=== PATIENT | male | born 1955 | race Caucasian/White ===

== ENCOUNTER 2016-07-15 22:18 | Inpatient (IN) | payer BC, OTHER ==
[~2016-07-15] VITALS: Ht 175.3 cm; Wt 96.1 kg
[2016-07-15 23:56] VITALS: BP 161/103; PULSE 135; RESP 20; TEMP 97.4; O2SAT 92
[2016-07-16] VITALS (20 sets, daily range): BP systolic 111–127; BP diastolic 56–77; PULSE 76–102; RESP 16–22; TEMP 97.9–98.4; O2SAT 66–99
[2016-07-16] MEDS ORDERED: MORPHINE SULFATE 8 MG/ML INJ ONE (00:12)
[2016-07-16] MEDS ORDERED: RESP: ALBUTEROL 2.5 MG/3 ML NEB (PRN) NEB (00:15)
[2016-07-16] MEDS ORDERED: MORPHINE SULFATE 4 MG/ML INJ IV PUSH ONE (00:15)
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
[2016-07-16] MEDS: methylPREDNISolone SOD SUCC 125 MG/2 ML VIAL IV PUSH SCH ×4 (01:13→17:50)
[2016-07-16] MEDS: BENZONATATE 100 MG CAP PO PRN ×2 (01:16→12:03)
[2016-07-16 01:19] LABS: AUTOMATED NEUTROPHIL # 6.1 TH/MM3 (1.8-7.7); BASOPHIL % 0.5 % (0.0-2.0); EOSINOPHIL # 0.1 TH/MM3 (0-0.4); EOSINOPHIL % 1.5 % (0.0-4.0); HEMATOCRIT 30.5 % (39.0-51.0); HEMO FLAGS DIFF FINAL; LYMPH % 18.4 % (9.0-44.0); LYMPHOCYTE # 1.6 TH/MM3 (1.0-4.8); MEAN CELL VOLUME 97.6 FL (80.0-100.0); MEAN CORPUSCULAR HGB CONC 34.8 % (32.0-36.0); MONO % 10.1 % (0.0-8.0); NEUT % 69.5 % (16.0-70.0); PLATELET COUNT 214 TH/MM3 (150-450); RED BLOOD COUNT 3.12 MIL/MM3 (4.50-5.90); RED CELL DISTRIBUTION WIDTH 14.4 % (11.6-17.2); WHITE BLOOD COUNT 8.8 TH/MM3 (4.0-11.0)
[2016-07-16 01:30] LABS: APTT (PATIENT) 26.6 SEC (24.3-30.1); INTERNATIONAL NORMALIZED RATIO 1.1 RATIO
[2016-07-16 01:50] LABS: BICARBONATE 28.4 MEQ/L (21.0-32.0); POTASSIUM 4.4 MEQ/L (3.5-5.1)
[2016-07-16] MEDS ORDERED: CHLORHEXIDINE GLUCONATE 2 % 1 PACK (2 CLOTHS) TOP PRN (03:00)
[2016-07-16] MEDS ORDERED: ONDANSETRON HCL 4 MG/2 ML VIAL IV PRN (03:00)
[2016-07-16] MEDS ORDERED: MISCELLANEOUS NURSING INFORMATION XX SCH (03:00)
[2016-07-16] MEDS: MORPHINE SULFATE 4 MG/ML INJ IV PUSH PRN ×9 (03:53→21:33)
[2016-07-16] MEDS: LEVOFLOXACIN 750 MG PREMIX INJ 150 ML IV SCH (03:53)
[2016-07-16] MEDS: CHLORHEXIDINE GLUCONATE 2 % 1 PACK (2 CLOTHS) TOP SCH (04:00)
[2016-07-16] MEDS: RESP: LIDOCAINE HCL 4% PF 5 ML NEB NEB SCH ×2 (04:04→07:54)
[2016-07-16] MEDS: RESP: ALBUTEROL 2.5 MG/IPRATROPIUM 0.5 MG NEB (SCH) NEB ×2 (07:54→11:19)
[2016-07-16] MEDS: FINASTERIDE 5 MG TAB PO SCH (08:18)
[2016-07-16] MEDS: ACETAMINOPHEN/HYDROcodone 325 MG/10 MG TAB PO PRN ×2 (08:18→14:45)
[2016-07-16] MEDS: PREGABALIN 25 MG CAP PO SCH ×2 (08:19→21:32)
[2016-07-16] MEDS: PANTOPRAZOLE SODIUM 40 MG VIAL IV SCH (08:19)
[2016-07-16] MEDS: DOCUSATE SODIUM 100 MG CAP PO SCH ×2 (08:19→21:32)
[2016-07-16] MEDS: LEVOTHYROXINE SODIUM 100 MCG TAB PO SCH (10:25)
[2016-07-16] MEDS: SODIUM CHLOR 0.9% 1000 ML INJ 1,000 ML IV SCH (14:49)
[2016-07-16] MEDS: LORazepam 2 MG/ML VIAL IV PUSH PRN (15:45)
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
[2016-07-16] MEDS: BUDESONIDE-FORMOTEROL 80/4.5 MCG INHALER INH SCH (21:32)
[2016-07-16] MEDS: CEFUROXIME AXETIL 500 MG TAB PO SCH (21:32)
[2016-07-17] VITALS (13 sets, daily range): BP systolic 96–127; BP diastolic 60–84; PULSE 74–117; RESP 12–28; TEMP 97.9–98.7; O2SAT 91–98
[2016-07-17] MEDS: methylPREDNISolone SOD SUCC 125 MG/2 ML VIAL IV PUSH SCH ×5 (01:33→23:37)
[2016-07-17] MEDS: LEVOFLOXACIN 750 MG PREMIX INJ 150 ML IV SCH (02:00)
[2016-07-17] MEDS: CHLORHEXIDINE GLUCONATE 2 % 1 PACK (2 CLOTHS) TOP SCH (04:00)
[2016-07-17 05:52] LABS: AUTOMATED NEUTROPHIL # 11.9 TH/MM3 (1.8-7.7); BASOPHIL % 0.2 % (0.0-2.0); HEMATOCRIT 25.3 % (39.0-51.0); HEMO FLAGS DIFF FINAL; LYMPH % 4.7 % (9.0-44.0); LYMPHOCYTE # 0.6 TH/MM3 (1.0-4.8); MEAN CELL VOLUME 98.5 FL (80.0-100.0); MEAN CORPUSCULAR HEMOGLOBIN 33.4 PG (27.0-34.0); MEAN CORPUSCULAR HGB CONC 33.9 % (32.0-36.0); MONO % 3.4 % (0.0-8.0); NEUT % 91.7 % (16.0-70.0); PLATELET COUNT 184 TH/MM3 (150-450); RED BLOOD COUNT 2.57 MIL/MM3 (4.50-5.90); RED CELL DISTRIBUTION WIDTH 14.6 % (11.6-17.2); WHITE BLOOD COUNT 12.9 TH/MM3 (4.0-11.0)
[2016-07-17] MEDS: MORPHINE SULFATE 4 MG/ML INJ IV PUSH PRN ×9 (05:58→23:38)
[2016-07-17] MEDS: LEVOTHYROXINE SODIUM 100 MCG TAB PO SCH (05:59)
[2016-07-17 06:01] LABS: MAGNESIUM 1.7 MG/DL (1.5-2.5); POTASSIUM 4.6 MEQ/L (3.5-5.1)
[2016-07-17] MEDS: PANTOPRAZOLE SODIUM 40 MG VIAL IV SCH (08:47)
[2016-07-17] MEDS: PREGABALIN 25 MG CAP PO SCH ×2 (08:55→19:54)
[2016-07-17] MEDS: CEFUROXIME AXETIL 500 MG TAB PO SCH ×2 (08:55→19:53)
[2016-07-17] MEDS: FINASTERIDE 5 MG TAB PO SCH (08:56)
[2016-07-17] MEDS: DOCUSATE SODIUM 100 MG CAP PO SCH ×2 (08:56→19:55)
[2016-07-17] MEDS: BUDESONIDE-FORMOTEROL 80/4.5 MCG INHALER INH SCH ×2 (08:57→21:00)
[2016-07-17] MEDS ORDERED: PNEUMOCOCCAL POLYVALENT INJ 25 MCG/0.5 ML SYR IM ONE (10:00)
[2016-07-17] MEDS: BENZONATATE 100 MG CAP PO PRN ×2 (11:05→19:52)
--- NOTE | 2016-07-17 13:22 | PD.TRANSFR ---
Transfer Summary Admission Date Jul 15, 2016 at 23:40 Transfer Date: Jul 17, 2016 Admitting Diagnosis Diagnoses: Objective Vital Signs Date Time Temp Pulse Resp B/P Pulse Ox O2 Delivery O2 Flow Rate FiO2 07/17/16 11:10 22 07/17/16 06:00 99 07/17/16 04:00 98.4 96/61 94 07/16/16 20:05 Nasal Cannula 4.00 Intake and Output 07/16/16 07/16/16 07/17/16 08:00 16:00 00:00 Intake Total 300 ml 905 ml 941 ml Output Total 400 ml 300 ml 400 ml Balance -100 ml 605 ml 541 ml Result Diagram: 07/17/16 0430 07/17/16 0430 Objective Remarks Temp 97.4 pulse 136 162/103 sat 97% on 2 L nasal GENERAL: Well-nourished, well-developed pleasant male who is sitting up in bed with nearly continuous coughing, intermittent hemoptysis of bright red blood. SKIN: Warm and dry, well perfused HEAD: Atraumatic. Normocephalic. EYES: Pupils equal and round. No scleral icterus. No injection or drainage. ENT: No nasal bleeding noted. No intraoral lesions noted. NECK: Trachea midline. No JVD. CARDIOVASCULAR: Regular rate and rhythm. No murmurs rubs or gallops appreciated. RESPIRATORY: Minimal cough. There is no accessory muscle use. Slight expiratory wheeze noted GASTROINTESTINAL: Abdomen soft, non-tender, nondistended. Bowel sounds present. MUSCULOSKELETAL: Extremities without clubbing, cyanosis, or edema. No obvious deformities. NEUROLOGICAL: Awake and alert. No obvious cranial nerve deficits. Motor grossly within normal limits. Normal speech. Oriented 4 Urinary Catheter: No Vascular Central Line Catheter: No A/P Problem List: (1) Major hemoptysis ICD Code: R04.2 Status: Acute (2) Adenocarcinoma of left lung ICD Code: C34.92 Status: Acute (3) BPH (benign prostatic hyperplasia) ICD Code: N40.0 Status: Chronic (4) Hypothyroid ICD Code: E03.9 Status: Chronic (5) Chronic bronchitis ICD Code: J42 Status: Chronic (6) Emphysema lung ICD Code: J43.9 Status: Chronic (7) Peripheral neuropathy ICD Code: G62.9 Status: Chronic (8) Anxiety ICD Code: F41.9 Status: Chronic (9) Anemia ICD Code: D64.9 Status: Acute (10) COPD (chronic obstructive pulmonary disease) ICD Code: J44.9 Status: Chronic (11) GERD (gastroesophageal reflux disease) ICD Code: K21.9 Status: Chronic (12) Tobacco abuse ICD Code: Z72.0 Status: Chronic (13) AAA (abdominal aortic aneurysm) without rupture ICD Code: I71.4 Status: Chronic Assessment and Plan NEURO: Peripheral neuropathy Chronic pain Anxiety Continue Lyrica 50 mg by mouth twice a day Continue Morphine 4 mg IV every 2 hours when necessary pain/cough Xanax 1 mg by mouth 3 times a day when necessary anxiety on hold Ativan 0.5 mill grams IV every 6 hours when necessary anxiety RESP: COPD Emphysema Chronic bronchitis Adenocarcinoma of lung, left upper lobe status post chemotherapy and radiation Vocal cord polyp Tobacco abuse Acute submassive hemoptysis Morphine 2-4 mg IV every 2 hours as needed for cough. Tessalon Perles 200 mg by mouth 3 times a day. Minimal cough Lidocaine nebs 4% every 6 hours. DuoNeb every 4 hours as needed. Albuterol every 2 hours as needed. Solu- Medrol 60 g IV every 6 hours Patient is expectorating and protecting his airway and would be in his best interest to avoid intubation at this time. Discussed with patient, will intubate if needed. CT pulmonary angiogram at outside hospital was negative for PE. There is DEISY lung nodule. DEISY bronchus is partially obstructed ?blood products vs endobronchial lesion. Patient had prior CT guided biopsy, he believes he may have had bronchoscopy in past but is uncertain. Pulmonology consult-Dr Fontaine and planned bronchoscopic evaluation for Hold ASA. Tobacco cessation discussed. CV: History of abdominal aortic aneurysm without rupture Monitor hemodynamics GI: GERD Protonix twice a day NPO after 12MN for bronch in am FEN/RENAL/UROLOGY: BPH Monitor intake and output. Monitor electrolytes. Replace electrolytes as indicated per ICU electrolyte replacement protocol Continue finasteride 5 mg po daily ID: Levaquin 750 mg IV every 24 hours given hemoptysis/bronchitis. 07/16- blood cultures-NGTD HEME: Adenocarcinoma lung s/p radiation and chemotherapy (completed May 2016) Monitor CBC-stable. Resolution of hemoptysis, minimal cough has f/u PET scan in August of 2016 in [place]. He states he then plans to move to [place] for ongoing care (his children live in [facility]). ENDO: Hypothyroidism Home Synthroid dose is 100 g by mouth daily continued. TSH 5.920 elevated, discussed medication compliance and taking medication on an empty stomach . PROPH: SCDs for DVT prophylaxis. Avoid pharmacologic DVT prophylaxis due to active hemoptysis. Protonix 40 milligrams IV daily for stress ulcer prophylaxis and history of GERD ACCESS: Port in left chest. Peripheral IV Patient and CILNICAL SCIENTIST updated at bedside regarding plan of care. Level 3. [facility] 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 Physician Rachael Howe MD Jul 17, 2016 13:22
[2016-07-17] MEDS: SODIUM CHLOR 0.9% 1000 ML INJ 1,000 ML IV SCH (16:07)
[2016-07-17] MEDS ORDERED: DEXT 5%-NACL 0.45% 1000 ML INJ 1,000 ML IV SCH (16:34)
--- NOTE | 2016-07-17 16:34 | HHI.PR ---
Subjective Remarks ALERT NO SOB HEMOPTYSIS PERSISTS Objective Vital Signs Date Time Temp Pulse Resp B/P Pulse Ox O2 Delivery O2 Flow Rate FiO2 07/17/16 13:05 22 07/17/16 09:55 22 07/17/16 06:00 99 07/17/16 04:00 74 07/17/16 04:00 98.4 74 12 96/61 94 07/17/16 02:00 98 07/17/16 00:00 87 07/17/16 00:00 98.1 87 18 111/67 96 07/16/16 23:00 92 07/16/16 22:00 84 07/16/16 20:05 95 Nasal Cannula 4.00 07/16/16 20:00 89 07/16/16 20:00 98.4 81 18 127/77 96 07/16/16 20:00 98.4 81 18 127/77 66 07/16/16 18:00 94 I/O 07/16/16 07/16/16 07/16/16 07/17/16 07/17/16 07/17/16 07:00 15:00 23:00 07:00 15:00 23:00 Intake Total 300 ml 905 ml 941 ml 818 ml 1645 ml Output Total 400 ml 300 ml 400 ml 900 ml 700 ml Balance -100 ml 605 ml 541 ml -82 ml 945 ml Intake Oral 50 ml 250 ml 250 ml 1000 ml IV Total 300 ml 855 ml 691 ml 568 ml 645 ml Output Urine Total 400 ml 300 ml 400 ml 900 ml 700 ml # Voids 1 Result Diagram: 07/17/16 0430 07/17/16 0430 Objective Remarks GENERAL: SKIN: Warm and dry. HEAD: Atraumatic. Normocephalic. EYES: Pupils equal and round. No scleral icterus. No injection or drainage. ENT: No nasal bleeding or discharge. Mucous membranes pink and moist. NECK: Trachea midline. No JVD. CARDIOVASCULAR: Regular rate and rhythm. RESPIRATORY: No accessory muscle use. Clear to auscultation. Breath sounds equal bilaterally. GASTROINTESTINAL: Abdomen soft, non-tender, nondistended. Hepatic and splenic margins not palpable. MUSCULOSKELETAL: Extremities without clubbing, cyanosis, or edema. No obvious deformities. NEUROLOGICAL: Awake and alert. No obvious cranial nerve deficits. Motor grossly within normal limits. Five out of 5 muscle strength in the arms and legs. Normal speech. PSYCHIATRIC: Appropriate mood and affect; insight and judgment normal. Assessment and Plan Assessment and Plan HEMOPTYSIS LUNG CA PLAN BRONCHOSCOPY AM CONTINUE ANTIBIOTICS Zhen Fontaine MD Jul 17, 2016 16:34
[2016-07-18] VITALS (13 sets, daily range): BP systolic 94–130; BP diastolic 61–80; PULSE 88–103; RESP 17–29; TEMP 97.9–98.3; O2SAT 96–99
[2016-07-18] MEDS: MORPHINE SULFATE 4 MG/ML INJ IV PUSH PRN ×8 (01:29→22:19)
[2016-07-18] MEDS: LEVOFLOXACIN 750 MG PREMIX INJ 150 ML IV SCH (01:30)
[2016-07-18] MEDS: SODIUM CHLOR 0.9% 1000 ML INJ 1,000 ML IV SCH ×2 (01:31→14:29)
[2016-07-18] MEDS: BENZONATATE 100 MG CAP PO PRN ×3 (03:46→22:14)
[2016-07-18] MEDS: CHLORHEXIDINE GLUCONATE 2 % 1 PACK (2 CLOTHS) TOP SCH (04:00)
[2016-07-18 04:51] LABS: HEMATOCRIT 22.4 % (39.0-51.0); MEAN CELL VOLUME 98.4 FL (80.0-100.0); MEAN CORPUSCULAR HEMOGLOBIN 33.3 PG (27.0-34.0); MEAN CORPUSCULAR HGB CONC 33.8 % (32.0-36.0); PLATELET COUNT 187 TH/MM3 (150-450); RED BLOOD COUNT 2.28 MIL/MM3 (4.50-5.90); RED CELL DISTRIBUTION WIDTH 14.4 % (11.6-17.2); REVIEW FLAG FINAL; WHITE BLOOD COUNT 16.5 TH/MM3 (4.0-11.0)
[2016-07-18] MEDS: LEVOTHYROXINE SODIUM 100 MCG TAB PO SCH (05:47)
[2016-07-18] MEDS: methylPREDNISolone SOD SUCC 125 MG/2 ML VIAL IV PUSH SCH ×4 (05:48→23:56)
[2016-07-18] MEDS ORDERED: EPINEPHrine HCL (1:1000) 1 MG/ML VIAL ONE (08:31)
[2016-07-18] MEDS ORDERED: LIDOCAINE HCL 2% 50 ML VIAL ONE (08:31)
[2016-07-18] MEDS: PREGABALIN 25 MG CAP PO SCH ×2 (09:00→20:48)
[2016-07-18] MEDS: CEFUROXIME AXETIL 500 MG TAB PO SCH ×2 (09:00→20:48)
[2016-07-18] MEDS: PANTOPRAZOLE SODIUM 40 MG VIAL IV SCH (09:00)
[2016-07-18] MEDS: FINASTERIDE 5 MG TAB PO SCH (09:00)
[2016-07-18] MEDS: DOCUSATE SODIUM 100 MG CAP PO SCH ×2 (09:00→20:48)
[2016-07-18] MEDS: BUDESONIDE-FORMOTEROL 80/4.5 MCG INHALER INH SCH ×2 (09:00→20:48)
[2016-07-18] MEDS ORDERED: DO NOT ADM ANY ANTICOAGULANT DRUGS PRN (09:07)
--- NOTE | 2016-07-18 09:30 | MR ---
cc: ZHEN FONTAINE M.D. DATE 07/18/2016 PROCEDURE Fiberoptic bronchoscopy flexible REASON FOR BRONCHOSCOPY Hemoptysis PROCEDURE Fiberoptic bronchoscopy performed via LMA. Vocal cords visualized appeared intact. Trachea mildly hyperemic. Jamilah sharp. Right mainstem bronchus, right upper, middle and lower lobe inspected with some heme staining, no obstruction or mass lesion. Left mainstem bronchus patent. The right upper and lower lobes with blood clots noted. Irregularity of the mucosa especially in the right upper lung is noted. No mass lesion per se identified and no attempt to remove blood clots completely in view of the patient's persistent hemoptysis. Washings were obtained from the left main stem bronchus for routine TB, fungal cultures, cytological exam. Procedure well tolerated. The patient transferred to recovery in stable condition. IMPRESSION 1. Hemoptysis likely related to left lung cancer, previously diagnosed earlier this year. 2. Samples obtained as above. 3. The procedure well tolerated. 4. The patient transferred recovery in stable condition. Thank you. Zhen Fontaine MD WWW/LAINEY /8:50 AM /9:15 AM
[2016-07-18] MEDS ORDERED: PROPOFOL 200 MG/20 ML AMP IV ONE (12:00)
[2016-07-18] MEDS: ACETAMINOPHEN/HYDROcodone 325 MG/10 MG TAB PO PRN (12:11)
[2016-07-18] MEDS: LORazepam 2 MG/ML VIAL IV PUSH PRN (12:42)
[2016-07-18 14:27] LABS: HEMATOCRIT 21.3 % (39.0-51.0); REVIEW FLAG FINAL
--- NOTE | 2016-07-18 15:01 | HHI.PR ---
Subjective Remarks The patient wanted to know how much longer he would be in the hospital. He still had a lot of coughing episodes and was coughing up blood. Family at bedside. The patient says he has a lot of chronic pain. He says he will need to transition his cancer care over to [place] from [place]. Discussed with nursing. Objective Vitals Vital Signs Date Time Temp Pulse Resp B/P Pulse Ox O2 Delivery O2 Flow Rate FiO2 07/18/16 13:11 20 07/18/16 12:16 20 07/18/16 10:00 100 07/18/16 09:30 98.4 88 16 128/78 97 Nasal Cannula 2 07/18/16 09:15 88 14 136/83 95 Nasal Cannula 2 07/18/16 09:00 97.3 119 15 129/74 95 Simple Mask 6 07/18/16 08:00 89 07/18/16 08:00 97.9 89 20 120/76 99 07/18/16 06:00 93 07/18/16 04:00 103 07/18/16 04:00 98.3 103 29 112/80 96 07/18/16 02:00 99 07/18/16 00:00 98.3 100 17 115/67 96 07/18/16 00:00 100 07/17/16 22:00 92 07/17/16 21:08 42 07/17/16 20:00 98.5 95 20 127/84 97 07/17/16 20:00 95 07/17/16 19:51 98 Nasal Cannula 07/17/16 18:00 86 07/17/16 16:00 106 07/17/16 16:00 97.9 106 28 121/63 94 I/O 07/17/16 07/17/16 07/17/16 07/18/16 07/18/16 07/18/16 07:00 15:00 23:00 07:00 15:00 23:00 Intake Total 818 ml 1645 ml 1125 ml 888 ml 300 ml Output Total 900 ml 700 ml 1425 ml 1475 ml Balance -82 ml 945 ml -300 ml -587 ml 300 ml Intake Oral 250 ml 1000 ml 480 ml 240 ml IV Total 568 ml 645 ml 645 ml 648 ml Other 300 ml Output Urine Total 900 ml 700 ml 725 ml 1400 ml Drainage Total 700 ml 75 ml Result Diagram: 07/18/16 1405 07/17/16 0430 Objective Remarks GENERAL: Well-nourished, well-developed and in no acute distress. SKIN: Warm and dry, well perfused HEAD: Atraumatic. Normocephalic. EYES: Pupils equal and round. No scleral icterus. No injection or drainage. ENT: No nasal bleeding noted. No intraoral lesions noted. NECK: Trachea midline. No JVD. CARDIOVASCULAR: Regular rate and rhythm. No murmurs rubs or gallops appreciated. RESPIRATORY: Slight expiratory wheeze noted. GASTROINTESTINAL: Abdomen soft, non-tender, nondistended. Bowel sounds present. MUSCULOSKELETAL: Extremities without clubbing, cyanosis, or edema. No obvious deformities. NEUROLOGICAL: Awake and alert. No obvious cranial nerve deficits. Motor grossly within normal limits. Normal speech. Oriented 4. PSYCH: Mood and affect appropriate. Procedures Bronchoscopy 07/18. Medications and IVs Current Medications Medications (Trade) Dose Ordered Sig/Neli Route Start Time Stop Time Status Last Admin (Tessalon) 200 mg TID PRN PO 07/16/16 00:15 07/18/16 12:41 Methylprednisolone Sodium Succinate 60 mg 60 mg Q6H IV PUSH 07/16/16 00:00 07/18/16 12:11 (Levaquin 750 Mg Premix Inj) 150 ml @ 100 mls/hr Q24H IV 07/16/16 02:00 07/18/16 01:30 (Lyrica) 50 mg Q12HR PO 07/16/16 09:00 07/17/16 19:54 (Ativan Inj) 0.5 mg Q6H PRN IV PUSH 07/16/16 02:45 07/18/16 12:42 Morphine Sulfate 4 mg 4 mg Q2H PRN IV PUSH 07/16/16 02:45 07/18/16 12:11 (NS 1000 ml Inj) 1,000 ml @ 84 mls/hr [id number] IV 07/16/16 02:54 07/18/16 14:29 (Protonix Inj) 40 mg DAILY IV 07/16/16 09:00 07/17/16 08:47 (Zofran Inj) 4 mg Q6H PRN IV 07/16/16 03:00 (Colace) 100 mg BID PO 07/16/16 09:00 07/17/16 08:56 Miscellaneous Information 1 [id number] XX 07/16/16 03:00 (Chlorhexidine 2% Cloth) 3 pack Taper DAILY@04 TOP 07/16/16 04:00 07/12/17 03:59 07/18/16 04:00 (Chlorhexidine 2% Cloth) 3 pack UNSCH PRN TOP 07/16/16 03:00 ([place] 10-325 Mg) 1 tab Q6H PRN PO 07/16/16 03:00 07/18/16 12:11 (Proscar) 5 mg DAILY PO 07/16/16 09:00 07/17/16 08:56 (Synthroid) 100 mcg DAILY@0600 PO 07/16/16 10:00 07/18/16 05:47 (Symbicort 80-4.5 Mcg Inh) 2 puff Q12HR INH 07/16/16 21:00 07/17/16 08:57 Cefuroxime Axetil 500 mg 500 mg Q12HR PO 07/16/16 21:00 07/17/16 19:53 (D5W-1/2 NS 1000 ml Inj) 1,000 ml @ 0 mls/hr Q0M IV 07/17/16 16:34 07/18/16 05:52 Miscellaneous Information ALL NURSING DEPARTME... UNSCH PRN .XX 07/18/16 09:07 07/19/16 09:06 A/P Assessment and Plan Adenocarcinoma of left upper lobe/ Hemoptysis/ COPD/ Acute respiratory failure Status post chemotherapy and radiation (completed May 2016). CT pulmonary angiogram at outside hospital was negative for PE; There is DEISY lung nodule; DEISY bronchus is partially obstructed ?blood products vs endobronchial lesion. S/ p bronchoscopy 07/18 by pulmonology. - Morphine 2-4 mg IV every 2 hours as needed for cough. - Tessalon Perles 200 mg by mouth 3 times a day. - Lidocaine nebs 4% every 6 hours. - Solu-Medrol 60 g IV every 6 hours - suction as needed. - follow cultures. - oxygen as needed. - serial H/H. Transfuse as needed. - Hold ASA. - Tobacco cessation discussed. - oncology consult pending. - continue Levaquin. - if unable to protect airway or hemoptysis gets worse will require intubation. Anemia Acute blood loss anemia secondary to above. Hemoglobin 7 07/18. - transfuse 1 unit and follow CBC. Hypothyroidism TSH 5.92. - discussed medication compliance and taking medication on an empty stomach. - Home Synthroid dose is 100 g by mouth daily continued. PPx: SCDs. Discharge Planning Awaiting clinical improvement. Francisco Benavides DO Jul 18, 2016 15:01
[2016-07-18] MEDS: AMINOCAPROIC ACID 500 MG TAB PO SCH ×2 (18:00→23:56)
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
--- NOTE | 2016-07-18 20:43 | HHI.PR ---
Subjective Remarks ALERT NO SOB HEMOPTYSIS PERSISTS bronchoscopy done well tolerated Objective Vital Signs Date Time Temp Pulse Resp B/P Pulse Ox O2 Delivery O2 Flow Rate FiO2 07/18/16 18:24 18 07/18/16 18:00 100 07/18/16 16:00 89 07/18/16 16:00 97.9 97 22 130/71 97 07/18/16 14:00 100 07/18/16 13:11 20 07/18/16 12:00 89 07/18/16 12:00 98.3 98 29 94/61 96 07/18/16 10:00 100 07/18/16 09:30 98.4 88 16 128/78 97 Nasal Cannula 2 07/18/16 09:15 88 14 136/83 95 Nasal Cannula 2 07/18/16 09:00 97.3 119 15 129/74 95 Simple Mask 6 07/18/16 08:00 89 07/18/16 08:00 97.9 89 20 120/76 99 07/18/16 06:00 93 07/18/16 04:00 103 07/18/16 04:00 98.3 103 29 112/80 96 07/18/16 02:00 99 07/18/16 00:00 98.3 100 17 115/67 96 07/18/16 00:00 100 07/17/16 22:00 92 07/17/16 21:08 42 I/O 07/17/16 07/17/16 07/17/16 07/18/16 07/18/16 07/18/16 07:00 15:00 23:00 07:00 15:00 23:00 Intake Total 818 ml 1645 ml 1125 ml 888 ml 1180 ml Output Total 900 ml 700 ml 1425 ml 1475 ml 1100 ml Balance -82 ml 945 ml -300 ml -587 ml 80 ml Intake Oral 250 ml 1000 ml 480 ml 240 ml 480 ml IV Total 568 ml 645 ml 645 ml 648 ml 400 ml Other 300 ml Output Urine Total 900 ml 700 ml 725 ml 1400 ml 1000 ml Drainage Total 700 ml 75 ml 100 ml Result Diagram: 07/18/16 1405 07/17/16 5880 Objective Remarks GENERAL: SKIN: Warm and dry. HEAD: Atraumatic. Normocephalic. EYES: Pupils equal and round. No scleral icterus. No injection or drainage. ENT: No nasal bleeding or discharge. Mucous membranes pink and moist. NECK: Trachea midline. No JVD. CARDIOVASCULAR: Regular rate and rhythm. RESPIRATORY: No accessory muscle use. Clear to auscultation. Breath sounds equal bilaterally. GASTROINTESTINAL: Abdomen soft, non-tender, nondistended. Hepatic and splenic margins not palpable. MUSCULOSKELETAL: Extremities without clubbing, cyanosis, or edema. No obvious deformities. NEUROLOGICAL: Awake and alert. No obvious cranial nerve deficits. Motor grossly within normal limits. Five out of 5 muscle strength in the arms and legs. Normal speech. PSYCHIATRIC: Appropriate mood and affect; insight and judgment normal. Assessment and Plan Assessment and Plan HEMOPTYSIS LUNG CA irregularity DEISY bronchus heam throughout tracheobronchial tree PLAN CONTINUE ANTIBIOTICS MONITOR CLOSELY Zhen Fontaine MD Jul 18, 2016 20:42
[2016-07-19] VITALS (11 sets, daily range): BP systolic 106–152; BP diastolic 47–89; PULSE 71–99; RESP 11–35; TEMP 98–98.3; O2SAT 95–100
[2016-07-19] MEDS: SODIUM CHLOR 0.9% 1000 ML INJ 1,000 ML IV SCH ×2 (02:24→14:19)
[2016-07-19] MEDS: LEVOFLOXACIN 750 MG PREMIX INJ 150 ML IV SCH (03:47)
[2016-07-19 03:55] LABS: REVIEW FLAG FINAL
[2016-07-19] MEDS: CHLORHEXIDINE GLUCONATE 2 % 1 PACK (2 CLOTHS) TOP SCH (03:55)
[2016-07-19] MEDS: MORPHINE SULFATE 4 MG/ML INJ IV PUSH PRN ×4 (03:55→23:13)
[2016-07-19 03:57] LABS: HEMATOCRIT 20.9 % (39.0-51.0)
[2016-07-19 04:40] LABS: HEMATOCRIT 21.8 % (39.0-51.0); REVIEW FLAG FINAL
[2016-07-19] MEDS: AMINOCAPROIC ACID 500 MG TAB PO SCH ×4 (06:24→23:13)
[2016-07-19] MEDS: methylPREDNISolone SOD SUCC 125 MG/2 ML VIAL IV PUSH SCH ×4 (06:24→23:13)
[2016-07-19] MEDS: LEVOTHYROXINE SODIUM 100 MCG TAB PO SCH (06:24)
[2016-07-19] MEDS: BUDESONIDE-FORMOTEROL 80/4.5 MCG INHALER INH SCH ×2 (09:00→20:50)
[2016-07-19] MEDS: ACETAMINOPHEN/HYDROcodone 325 MG/10 MG TAB PO PRN (09:58)
[2016-07-19] MEDS: PANTOPRAZOLE SODIUM 40 MG VIAL IV SCH (09:58)
[2016-07-19] MEDS: PREGABALIN 25 MG CAP PO SCH ×2 (09:58→20:51)
[2016-07-19] MEDS: FINASTERIDE 5 MG TAB PO SCH (09:58)
[2016-07-19] MEDS: DOCUSATE SODIUM 100 MG CAP PO SCH ×2 (09:58→20:51)
[2016-07-19] MEDS: CEFUROXIME AXETIL 500 MG TAB PO SCH ×2 (09:58→20:50)
[2016-07-19] MEDS ORDERED: MIDAZOLAM HCL 5 MG/5 ML VIAL ONE (11:57)
[2016-07-19] MEDS ORDERED: fentaNYL CITRATE 250 MCG/5 ML AMP ONE (11:58)
[2016-07-19] MEDS ORDERED: ceFAZolin 2 GM PREMIX 50 ML ONE (12:02)
--- NOTE | 2016-07-19 13:45 | HHI.PR ---
Subjective Remarks ALERT NO SOB HEMOPTYSIS STOPPED post AMICAR bronchoscopy done well tolerated Objective Vital Signs Date Time Temp Pulse Resp B/P Pulse Ox O2 Delivery O2 Flow Rate FiO2 07/19/16 12:25 20 07/19/16 11:00 20 07/19/16 06:00 71 07/19/16 04:00 71 07/19/16 04:00 98.2 71 11 131/71 100 07/19/16 04:00 9 07/19/16 02:00 71 07/19/16 00:00 84 07/19/16 00:00 98.0 84 12 106/47 98 07/18/16 22:00 89 07/18/16 20:44 96 Nasal Cannula 3.00 07/18/16 20:00 98.2 88 17 116/71 98 07/18/16 20:00 95 07/18/16 18:00 100 07/18/16 16:00 89 07/18/16 16:00 97.9 97 22 130/71 97 07/18/16 14:00 100 I/O 07/18/16 07/18/16 07/18/16 07/19/16 07/19/16 07/19/16 07:00 15:00 23:00 07:00 15:00 23:00 Intake Total 888 ml 1180 ml 916 ml 1216 ml Output Total 1475 ml 1100 ml 500 ml 650 ml Balance -587 ml 80 ml 416 ml 566 ml Intake Oral 240 ml 480 ml 480 ml 620 ml IV Total 648 ml 400 ml 121 ml 596 ml Packed Cells 315 ml Other 300 ml Output Urine Total 1400 ml 1000 ml 300 ml 650 ml Drainage Total 75 ml 100 ml 200 ml 0 ml Result Diagram: 07/19/16 0400 07/17/16 0430 Objective Remarks GENERAL: SKIN: Warm and dry. HEAD: Atraumatic. Normocephalic. EYES: Pupils equal and round. No scleral icterus. No injection or drainage. ENT: No nasal bleeding or discharge. Mucous membranes pink and moist. NECK: Trachea midline. No JVD. CARDIOVASCULAR: Regular rate and rhythm. RESPIRATORY: No accessory muscle use. Clear to auscultation. Breath sounds equal bilaterally. GASTROINTESTINAL: Abdomen soft, non-tender, nondistended. Hepatic and splenic margins not palpable. MUSCULOSKELETAL: Extremities without clubbing, cyanosis, or edema. No obvious deformities. NEUROLOGICAL: Awake and alert. No obvious cranial nerve deficits. Motor grossly within normal limits. Five out of 5 muscle strength in the arms and legs. Normal speech. PSYCHIATRIC: Appropriate mood and affect; insight and judgment normal. Assessment and Plan Assessment and Plan HEMOPTYSIS LUNG CA irregularity DEISY bronchus heam throughout tracheobronchial tree PLAN CONTINUE ANTIBIOTICS MONITOR CLOSELY F/U CT PENDING Zhen Fontaine MD Jul 19, 2016 13:45
--- NOTE | 2016-07-19 13:59 | PD.ONC.PN ---
Subjective Subjective Remarks Patient off floor undergoing embolization. Objective Data Date Time Temp Pulse Resp B/P Pulse Ox O2 Delivery O2 Flow Rate FiO2 07/19/16 12:25 20 07/19/16 11:00 20 07/19/16 06:00 71 07/19/16 04:00 71 07/19/16 04:00 98.2 71 11 131/71 100 07/19/16 04:00 9 07/19/16 02:00 71 07/19/16 00:00 84 07/19/16 00:00 98.0 84 12 106/47 98 07/18/16 22:00 89 07/18/16 20:44 96 Nasal Cannula 3.00 07/18/16 20:00 98.2 88 17 116/71 98 07/18/16 20:00 95 07/18/16 18:00 100 07/18/16 16:00 89 07/18/16 16:00 97.9 97 22 130/71 97 07/18/16 14:00 100 07/19/16 07/19/16 07/19/16 07:00 15:00 23:00 Intake Total 1216 ml Output Total 650 ml Balance 566 ml Result Diagram: 07/19/16 0400 07/17/16 0430 Laboratory Results Laboratory Tests Test 07/18/16 07/18/16 07/18/16 07/18/16 14:05 15:06 15:46 23:50 Hemoglobin 7.0 GM/DL 7.1 GM/DL Hematocrit 21.3 % 20.9 % Crossmatch Leukocyte-Reduced Red Blood Cells Blood Bank Comment Blood Type A POSITIVE Carcinoembryonic Antigen 4.0 NG/ML Test 07/19/16 04:00 Hemoglobin 7.4 GM/DL Hematocrit 21.8 % Culture Results Microbiology Date/Time Procedure Status Source Growth 07/18/16 08:36 Gram Stain - Final Resulted Bronchial Washings Other 07/18/16 08:36 Bronchial Culture - Preliminary Resulted Bronchial Washings Other LIGHT GROWTH NORMAL RESPIRATORY DELISA... 07/18/16 08:36 Acid Fast Stain - Final Resulted Bronchial Washings Other NO ACID FAST BACILLI SEEN 07/18/16 08:36 Mycobacterial Culture Resulted Bronchial Washings Other Pending 07/18/16 08:36 Fungal Smear - Final Resulted Bronchial Washings Other NO FUNGAL ELEMENTS SEEN. 07/18/16 08:36 Fungal Culture Resulted Bronchial Washings Other Pending Administered Medications Medications (Trade) Dose Ordered Sig/Neli Route PRN Reason Start Time Stop Time Status Last Admin Dose Admin Benzonatate (Tessalon) 200 mg TID PRN PO COUGH 07/16/16 00:15 07/18/16 22:14 Methylprednisolone Sodium Succinate 60 mg 60 mg Q6H IV PUSH 07/16/16 00:00 07/19/16 06:24 Levofloxacin/ Dextrose (Levaquin 750 Mg Premix Inj) 150 ml @ 100 mls/hr Q24H IV 07/16/16 02:00 07/19/16 03:47 Pregabalin (Lyrica) 50 mg Q12HR PO 07/16/16 09:00 07/19/16 09:58 Lorazepam (Ativan Inj) 0.5 mg Q6H PRN IV PUSH ANXIETY 07/16/16 02:45 07/18/16 12:42 Morphine Sulfate 4 mg 4 mg Q2H PRN IV PUSH COUGH OR breakthrough PAIN 07/16/16 02:45 07/19/16 03:55 Sodium Chloride (NS 1000 ml Inj) 1,000 ml @ 84 mls/hr [id number] IV 07/16/16 02:54 07/19/16 02:24 Pantoprazole Sodium (Protonix Inj) 40 mg DAILY IV 07/16/16 09:00 07/19/16 09:58 Docusate Sodium (Colace) 100 mg BID PO 07/16/16 09:00 07/19/16 09:58 Chlorhexidine Gluconate (Chlorhexidine 2% Cloth) 3 pack Taper DAILY@04 TOP 07/16/16 04:00 07/12/17 03:59 07/19/16 03:55 Acetaminophen/ Hydrocodone Bitart ([place] 10-325 Mg) 1 tab Q6H PRN PO PAIN 07/16/16 03:00 07/19/16 09:58 Finasteride (Proscar) 5 mg DAILY PO 07/16/16 09:00 07/19/16 09:58 Levothyroxine Sodium (Synthroid) 100 mcg DAILY@0600 PO 07/16/16 10:00 07/19/16 06:24 Budesonide/ Formoterol Fumarate (Symbicort 80-4.5 Mcg Inh) 2 puff Q12HR INH 07/16/16 21:00 07/17/16 08:57 Cefuroxime Axetil 500 mg 500 mg Q12HR PO 07/16/16 21:00 07/19/16 09:58 Dextrose/Sodium Chloride (D5W-1/2 NS 1000 ml Inj) 1,000 ml @ 0 mls/hr Q0M IV 07/17/16 16:34 07/18/16 05:52 Aminocaproic Acid (Amicar) 1,000 mg Q6HR PO 07/18/16 18:00 07/19/16 06:24 Objective Remarks GENERAL: Well-nourished, well-developed patient. SKIN: Warm and dry. HEAD: Normocephalic. EYES: No scleral icterus. No injection or drainage. NECK: Supple, trachea midline. No JVD or lymphadenopathy. LYMPHATIC: No adenopathy. CARDIOVASCULAR: Regular rate and rhythm without murmurs. RESPIRATORY: Breath sounds equal bilaterally. No accessory muscle use. GASTROINTESTINAL: Abdomen soft, non-tender, nondistended. EXTREMITIES: No cyanosis, or edema. MUSCULOSKELETAL: Adequate muscle tone. NEUROLOGICAL: No obvious focal deficit. Awake, alert, and oriented x3. PSYCHIATRIC: Appropriate mood and affect; insight and judgment normal. Assessment/Plan Problem List: (1) Adenocarcinoma of left lung Status: Acute Plan: --on Amicar 1000 milligrams p.o. q. 6 hours. --undergoing embolization in IR --bronchoscopy by Dr. Fontaine 07/18 -->blood on both sides, more so on the left than on the right. The left bronchus was irregular. The note refers to irregularity of the mucosa in the right upper lung but on speaking with Dr. Fontaine, I believe that this was actually present in the left lung. --His oncologist indicated that he probably did not have a complete response to the chemo and radiation. The oncologist is planning on doing a PET scan in the next month or two. --On conferring with his medical oncologist, there is no room for additional radiation therapy. History: --stage IIIB non-small cell lung cancer. --treated with radiation therapy and concomitant carboplatin and Alimta receiving three cycles of carboplatin and Alimta. --last chemotherapy May 08. --last radiation May. Assessment 61y/o male with [id number] lung cancer admitted with severe hemoptysis having recently completed chemotherapy and radiation. h/o Benign prostatic hypertrophy. Hypothyroidism. Chyna Patel Jul 19, 2016 13:59 Chyna Patel Jul 19, 2016 13:59
--- NOTE | 2016-07-19 14:14 | HHI.PR ---
Subjective Remarks The patient was seen in specials getting the embolization done. Discussed with nursing. The patient has been coughing but has not been coughing up any more blood. He does seem to get anxious and sometimes has a hard time following commands. Objective Vitals Vital Signs Date Time Temp Pulse Resp B/P Pulse Ox O2 Delivery O2 Flow Rate FiO2 07/19/16 12:25 20 07/19/16 11:00 20 07/19/16 06:00 71 07/19/16 04:00 71 07/19/16 04:00 98.2 71 11 131/71 100 07/19/16 04:00 9 07/19/16 02:00 71 07/19/16 00:00 84 07/19/16 00:00 98.0 84 12 106/47 98 07/18/16 22:00 89 07/18/16 20:44 96 Nasal Cannula 3.00 07/18/16 20:00 98.2 88 17 116/71 98 07/18/16 20:00 95 07/18/16 18:00 100 07/18/16 16:00 89 07/18/16 16:00 97.9 97 22 130/71 97 I/O 07/18/16 07/18/16 07/18/16 07/19/16 07/19/16 07/19/16 07:00 15:00 23:00 07:00 15:00 23:00 Intake Total 888 ml 1180 ml 916 ml 1216 ml Output Total 1475 ml 1100 ml 500 ml 650 ml Balance -587 ml 80 ml 416 ml 566 ml Intake Oral 240 ml 480 ml 480 ml 620 ml IV Total 648 ml 400 ml 121 ml 596 ml Packed Cells 315 ml Other 300 ml Output Urine Total 1400 ml 1000 ml 300 ml 650 ml Drainage Total 75 ml 100 ml 200 ml 0 ml Result Diagram: 07/19/16 0400 07/17/16 0430 Objective Remarks GENERAL: Sedated on IR table. SKIN: Warm and dry, well perfused HEAD: Atraumatic. Normocephalic. EYES: Pupils equal and round. No scleral icterus. No injection or drainage. ENT: No nasal bleeding noted. No intraoral lesions noted. NECK: Trachea midline. No JVD. CARDIOVASCULAR: Regular rate and rhythm. No murmurs rubs or gallops appreciated. RESPIRATORY: Slight expiratory wheeze noted. GASTROINTESTINAL: Abdomen soft, non-tender, nondistended. Bowel sounds present. MUSCULOSKELETAL: Extremities without clubbing, cyanosis, or edema. No obvious deformities. NEUROLOGICAL: No obvious cranial nerve deficits. Motor grossly within normal limits. Normal speech. Oriented 4. PSYCH: Unable to assess at this time. Procedures Bronchoscopy 07/18. Embolization 07/19. Medications and IVs Current Medications Medications (Trade) Dose Ordered Sig/Neli Route Start Time Stop Time Status Last Admin (Tessalon) 200 mg TID PRN PO 07/16/16 00:15 07/18/16 22:14 Methylprednisolone Sodium Succinate 60 mg 60 mg Q6H IV PUSH 07/16/16 00:00 07/19/16 06:24 (Levaquin 750 Mg Premix Inj) 150 ml @ 100 mls/hr Q24H IV 07/16/16 02:00 07/19/16 03:47 (Lyrica) 50 mg Q12HR PO 07/16/16 09:00 07/19/16 09:58 (Ativan Inj) 0.5 mg Q6H PRN IV PUSH 07/16/16 02:45 07/18/16 12:42 Morphine Sulfate 4 mg 4 mg Q2H PRN IV PUSH 07/16/16 02:45 07/19/16 03:55 (NS 1000 ml Inj) 1,000 ml @ 84 mls/hr [id number] IV 07/16/16 02:54 07/19/16 02:24 (Protonix Inj) 40 mg DAILY IV 07/16/16 09:00 07/19/16 09:58 (Zofran Inj) 4 mg Q6H PRN IV 07/16/16 03:00 (Colace) 100 mg BID PO 07/16/16 09:00 07/19/16 09:58 Miscellaneous Information 1 [id number] XX 07/16/16 03:00 (Chlorhexidine 2% Cloth) 3 pack Taper DAILY@04 TOP 07/16/16 04:00 07/12/17 03:59 07/19/16 03:55 (Chlorhexidine 2% Cloth) 3 pack UNSCH PRN TOP 07/16/16 03:00 ([place] 10-325 Mg) 1 tab Q6H PRN PO 07/16/16 03:00 07/19/16 09:58 (Proscar) 5 mg DAILY PO 07/16/16 09:00 07/19/16 09:58 (Synthroid) 100 mcg DAILY@0600 PO 07/16/16 10:00 07/19/16 06:24 (Symbicort 80-4.5 Mcg Inh) 2 puff Q12HR INH 07/16/16 21:00 07/17/16 08:57 Cefuroxime Axetil 500 mg 500 mg Q12HR PO 07/16/16 21:00 07/19/16 09:58 (D5W-1/2 NS 1000 ml Inj) 1,000 ml @ 0 mls/hr Q0M IV 07/17/16 16:34 07/18/16 05:52 (Amicar) 1,000 mg Q6HR PO 07/18/16 18:00 07/19/16 06:24 A/P Assessment and Plan Adenocarcinoma of left upper lobe/ Hemoptysis/ COPD/ Acute respiratory failure Status post chemotherapy and radiation (completed May 2016). CT pulmonary angiogram at outside hospital was negative for PE; There is DEISY lung nodule; DEISY bronchus is partially obstructed ?blood products vs endobronchial lesion. S/ p bronchoscopy 07/18 by pulmonology. Bleeding improved following Amicar. Oncology consult appreciated. - Morphine 2-4 mg IV every 2 hours as needed for cough. - Tessalon Perles 200 mg by mouth 3 times a day. - Lidocaine nebs 4% every 6 hours. - Solu-Medrol 60 g IV every 6 hours. - suction as needed. - follow cultures. - oxygen as needed. - serial H/H. Transfuse as needed. S/p 1 unit 07/19. - Hold ASA. - Tobacco cessation discussed. - IR consulted for embolization. - continue Levaquin and Amicar. - if unable to protect airway or hemoptysis gets worse will require intubation. Anemia Acute blood loss anemia secondary to above. Hemoglobin 7 07/18. - follow CBC and transfuse as needed. Hypothyroidism TSH 5.92. - discussed medication compliance and taking medication on an empty stomach. - Home Synthroid dose is 100 g by mouth daily continued. PPx: SCDs. Discharge Planning Awaiting clinical improvement. Francisco Benavides DO Jul 19, 2016 14:14
[2016-07-19] MEDS ORDERED: IODIXANOL 320 MG/ML 50 ML VIAL (for RAD SPEC) I-ARTERIAL ONE (14:46)
--- NOTE | 2016-07-19 14:59 | PD.RAD ---
Post Procedure Progress Note Pre Procedure Diagnosis: (1) Adenocarcinoma of left lung Post Procedure Diagnosis: (1) Adenocarcinoma of left lung Procedure Date: Jul 19, 2016 Supervising Radiologist: Joselito Ramos Proceduralist/Assist: Miguel Chung, RT(R), Aby Helton RT(R)() Anesthesia: Local, Conscious Sedation Plan of Activity Patient to Unit: ROPU Patient Condition: Fair See PACS Report for procedural detail/treatment Vascular-Arterial Procedure Procedure 1 Procedure Site: Thoracic Procedure(s): Embolization Access Access Site(s): Right Femoral Artery Closure Site(s): Right vascular closure device Treament Area: left bronchial artery embolization Joselito Ramos MD Jul 19, 2016 14:59
[2016-07-19] MEDS ORDERED: SODIUM CHLOR 0.9% 1000 ML INJ 1,000 ML IV SCH (16:00)
[2016-07-19 17:06] LABS: HEMATOCRIT 21.8 % (39.0-51.0); REVIEW FLAG FINAL
--- NOTE | 2016-07-19 17:41 | RADRPT ---
EXAM DATE/TIME: 07/19/2016 11:11 [facility] COMPARISON: No previous studies available for comparison. INDICATIONS : Hemoptysis. RADIATION DOSE: 5.98 CTDIvol (mGy) MEDICAL HISTORY : Carcinoma, lung. Hypertension. Chronic obstructive pulmonary disease. SURGICAL HISTORY : None. ENCOUNTER: Initial ACUITY: 1 day PAIN SCALE: 0/10 LOCATION: Bilateral chest TECHNIQUE: Volumetric scanning of the chest was performed. Using automated exposure control and adjustment of t he mA and/or kV according to patient size, radiation dose was kept as low as reasonably achievable to obtain optimal diagnostic quality images. FINDINGS: LUNGS: There is a slightly greater than 1 cm nodular density in the lateral left upper lobe. There is minima l perihilar reticular scarring on the left. Slight thickening along the upper medial aspect of the le ft major fissure. No evidence of consolidative infiltrate. No suspicious findings in the right lung. Baseline mild bullous emphysema. PLEURAE: There is no pleural thickening or pleural effusion. MEDIASTINUM: The heart and great vessels demonstrate no acute abnormality. There is no mediastinal or hilar lymph adenopathy. AXILLAE: Within normal limits. No lymphadenopathy. MUSCULOSKELETAL: Within normal limits for patient age. MISCELLANEOUS: The visualized upper abdominal organs demonstrate no acute abnormality. CONCLUSION: 1 cm nodular density in the left upper lobe laterally and slight reticular interstitial thickening in the left perihilar parenchyma. Joselito Ramos MD on July 19, 2016 at 16:57 Board Certified Radiologist. This report was verified electronically.
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
[2016-07-20] VITALS (11 sets, daily range): BP systolic 96–158; BP diastolic 55–90; PULSE 68–72; RESP 13–16; TEMP 97.7–98.3; O2SAT 97–100
[2016-07-20 00:48] LABS: HEMATOCRIT 21.2 % (39.0-51.0); REVIEW FLAG FINAL
[2016-07-20] MEDS: SODIUM CHLOR 0.9% 1000 ML INJ 1,000 ML IV SCH ×2 (02:14→14:09)
[2016-07-20] MEDS: LEVOFLOXACIN 750 MG PREMIX INJ 150 ML IV SCH (02:35)
[2016-07-20] MEDS: CHLORHEXIDINE GLUCONATE 2 % 1 PACK (2 CLOTHS) TOP SCH (04:00)
[2016-07-20] MEDS: AMINOCAPROIC ACID 500 MG TAB PO SCH ×3 (04:59→18:00)
[2016-07-20] MEDS: LEVOTHYROXINE SODIUM 100 MCG TAB PO SCH (04:59)
[2016-07-20] MEDS: BENZONATATE 100 MG CAP PO PRN ×3 (04:59→23:56)
[2016-07-20] MEDS: methylPREDNISolone SOD SUCC 125 MG/2 ML VIAL IV PUSH SCH ×4 (04:59→23:35)
[2016-07-20] MEDS: MORPHINE SULFATE 4 MG/ML INJ IV PUSH PRN ×5 (05:00→23:36)
[2016-07-20 06:01] LABS: HEMATOCRIT 21.3 % (39.0-51.0); MEAN CELL VOLUME 96.8 FL (80.0-100.0); MEAN CORPUSCULAR HEMOGLOBIN 32.7 PG (27.0-34.0); MEAN CORPUSCULAR HGB CONC 33.8 % (32.0-36.0); PLATELET COUNT 167 TH/MM3 (150-450); RED CELL DISTRIBUTION WIDTH 17.6 % (11.6-17.2); REVIEW FLAG FINAL; WHITE BLOOD COUNT 10.4 TH/MM3 (4.0-11.0)
[2016-07-20 06:29] LABS: BICARBONATE 25.2 MEQ/L (21.0-32.0); MAGNESIUM 2.2 MG/DL (1.5-2.5); POTASSIUM 4.2 MEQ/L (3.5-5.1)
[2016-07-20] MEDS: BUDESONIDE-FORMOTEROL 80/4.5 MCG INHALER INH SCH ×2 (09:00→20:30)
[2016-07-20] MEDS: PREGABALIN 25 MG CAP PO SCH ×2 (09:18→20:30)
[2016-07-20] MEDS: DOCUSATE SODIUM 100 MG CAP PO SCH ×2 (09:18→20:30)
[2016-07-20] MEDS: PANTOPRAZOLE SODIUM 40 MG VIAL IV SCH (09:18)
[2016-07-20] MEDS: CEFUROXIME AXETIL 500 MG TAB PO SCH ×2 (09:18→20:30)
[2016-07-20] MEDS: FINASTERIDE 5 MG TAB PO SCH (09:18)
--- NOTE | 2016-07-20 11:24 | PD.ONC.PN ---
Subjective Subjective Remarks Afebrile overnight. Patient s/p embolization in IR yesterday and has had no bleeding since that time. He is resting comfortably and feels much improved. He wants to get out of the unit. Objective Data Date Time Temp Pulse Resp B/P Pulse Ox O2 Delivery O2 Flow Rate FiO2 07/20/16 10:00 72 07/20/16 09:36 97 07/20/16 08:00 98.0 70 14 128/90 98 07/20/16 08:00 70 07/20/16 06:00 68 07/20/16 04:00 68 07/20/16 04:00 97.9 68 13 108/60 100 07/20/16 02:00 72 07/20/16 00:00 98.3 70 14 96/55 97 07/20/16 00:00 70 07/19/16 22:00 79 07/19/16 20:00 99 07/19/16 20:00 98.3 99 35 152/89 95 07/19/16 18:12 18 07/19/16 18:00 71 07/19/16 16:00 71 07/19/16 15:00 98.0 79 20 115/55 98 07/19/16 14:00 71 07/19/16 12:25 20 07/20/16 07/20/16 07/20/16 07:00 15:00 23:00 Intake Total 557 ml Output Total 750 ml Balance -193 ml Result Diagram: 07/20/16 0515 07/20/16 0515 Laboratory Results Laboratory Tests Test 07/19/16 07/19/16 07/20/16 07/20/16 16:40 22:45 05:15 08:27 Hemoglobin 7.3 GM/DL 7.2 GM/DL 7.2 GM/DL Hematocrit 21.8 % 21.2 % 21.3 % White Blood Count 10.4 TH/MM3 Red Blood Count 2.20 MIL/MM3 Mean Corpuscular Volume 96.8 FL Mean Corpuscular Hemoglobin 32.7 PG Mean Corpuscular Hemoglobin 33.8 % Concent Red Cell Distribution Width 17.6 % Platelet Count 167 TH/MM3 Mean Platelet Volume 9.0 FL Sodium Level 143 MEQ/L Potassium Level 4.2 MEQ/L Chloride Level 112 MEQ/L Carbon Dioxide Level 25.2 MEQ/L Anion Gap 6 MEQ/L Blood Urea Nitrogen 29 MG/DL Creatinine 1.09 MG/DL Estimat Glomerular Filtration 69 ML/MIN Rate Random Glucose 99 MG/DL Calcium Level 8.0 MG/DL Magnesium Level 2.2 MG/DL Blood Type A POSITIVE Crossmatch Leukocyte-Reduced Red Blood Cells Blood Bank Comment Culture Results Microbiology Date/Time Procedure Status Source Growth 07/18/16 08:36 Gram Stain - Final Resulted Bronchial Washings Other 07/18/16 08:36 Bronchial Culture - Preliminary Resulted Bronchial Washings Other LIGHT GROWTH NORMAL RESPIRATORY DELISA... 07/18/16 08:36 Acid Fast Stain - Final Resulted Bronchial Washings Other NO ACID FAST BACILLI SEEN 07/18/16 08:36 Mycobacterial Culture Resulted Bronchial Washings Other Pending 07/18/16 08:36 Fungal Smear - Final Resulted Bronchial Washings Other NO FUNGAL ELEMENTS SEEN. 07/18/16 08:36 Fungal Culture Resulted Bronchial Washings Other Pending Administered Medications Medications (Trade) Dose Ordered Sig/Neli Route PRN Reason Start Time Stop Time Status Last Admin Dose Admin Benzonatate (Tessalon) 200 mg TID PRN PO COUGH 07/16/16 00:15 07/20/16 09:00 Methylprednisolone Sodium Succinate 60 mg 60 mg Q6H IV PUSH 07/16/16 00:00 07/20/16 04:59 Levofloxacin/ Dextrose (Levaquin 750 Mg Premix Inj) 150 ml @ 100 mls/hr Q24H IV 07/16/16 02:00 07/20/16 02:35 Pregabalin (Lyrica) 50 mg Q12HR PO 07/16/16 09:00 07/20/16 09:18 Lorazepam (Ativan Inj) 0.5 mg Q6H PRN IV PUSH ANXIETY 07/16/16 02:45 07/18/16 12:42 Morphine Sulfate 4 mg 4 mg Q2H PRN IV PUSH COUGH OR breakthrough PAIN 07/16/16 02:45 07/20/16 09:30 Sodium Chloride (NS 1000 ml Inj) 1,000 ml @ 84 mls/hr [id number] IV 07/16/16 02:54 07/20/16 02:14 Pantoprazole Sodium (Protonix Inj) 40 mg DAILY IV 07/16/16 09:00 07/20/16 09:18 Docusate Sodium (Colace) 100 mg BID PO 07/16/16 09:00 07/20/16 09:18 Chlorhexidine Gluconate (Chlorhexidine 2% Cloth) 3 pack Taper DAILY@04 TOP 07/16/16 04:00 07/12/17 03:59 07/20/16 04:00 Acetaminophen/ Hydrocodone Bitart ([place] 10-325 Mg) 1 tab Q6H PRN PO PAIN 07/16/16 03:00 07/19/16 09:58 Finasteride (Proscar) 5 mg DAILY PO 07/16/16 09:00 07/20/16 09:18 Levothyroxine Sodium (Synthroid) 100 mcg DAILY@0600 PO 07/16/16 10:00 07/20/16 04:59 Budesonide/ Formoterol Fumarate (Symbicort 80-4.5 Mcg Inh) 2 puff Q12HR INH 07/16/16 21:00 07/17/16 08:57 Cefuroxime Axetil 500 mg 500 mg Q12HR PO 07/16/16 21:00 07/20/16 09:18 Dextrose/Sodium Chloride (D5W-1/2 NS 1000 ml Inj) 1,000 ml @ 0 mls/hr Q0M IV 07/17/16 16:34 07/18/16 05:52 Aminocaproic Acid (Amicar) 1,000 mg Q6HR PO 07/18/16 18:00 07/20/16 04:59 Objective Remarks GENERAL: Middle aged male, sitting up in bed in nad SKIN: Warm and dry. HEAD: Normocephalic. EYES: No injection or drainage. NECK: Supple, trachea midline. CARDIOVASCULAR: +S1/S2 RESPIRATORY: diminished at bases, anterior bower clear. GASTROINTESTINAL: Abdomen soft, non-tender, nondistended. EXTREMITIES: No cyanosis NEUROLOGICAL: No obvious focal deficit. Awake, alert, and oriented x3. Assessment/Plan Problem List: (1) Adenocarcinoma of left lung Status: Acute Plan: --on Amicar 1000 milligrams p.o. q. 6 hours. --s/p embolization in IR --bronchoscopy by Dr. Fontaine 07/18 -->blood on both sides, more so on the left than on the right. The left bronchus was irregular. The note refers to irregularity of the mucosa in the right upper lung but on speaking with Dr. Fontaine, I believe that this was actually present in the left lung. --His oncologist indicated that he probably did not have a complete response to the chemo and radiation. The oncologist is planning on doing a PET scan in the next month or two. --On conferring with his medical oncologist, there is no room for additional radiation therapy. History: --stage IIIB non-small cell lung cancer. --treated with radiation therapy and concomitant carboplatin and Alimta receiving three cycles of carboplatin and Alimta. --last chemotherapy May 08. --last radiation May. Assessment 61y/o male with [id number] lung cancer admitted with severe hemoptysis having recently completed chemotherapy and radiation. h/o Benign prostatic hypertrophy. Hypothyroidism. Plan 1. agree with 1 unit pRBC today 2. monitor CBC Attending Statement The exam, history, and the medical decision-making described in the above note were completed with the assistance of the mid-level provider. I reviewed and agree with the findings presented. I attest that I had a [id number] encounter with the patient on the same day, and personally performed and documented my assessment and findings in the medical record. OK to d/c if no hemoptysis and Hb remains stable f/u in oncology clinic in 1 week Chyna Patel Jul 20, 2016 11:24 Neto Mariano MD Jul 21, 2016 00:03
--- NOTE | 2016-07-20 13:50 | HHI.PR ---
Subjective Remarks ALERT NO SOB HEMOPTYSIS STOPPED post AMICAR bronchoscopy done well tolerated Objective Vital Signs Date Time Temp Pulse Resp B/P Pulse Ox O2 Delivery O2 Flow Rate FiO2 07/20/16 13:33 16 07/20/16 10:00 72 07/20/16 09:36 97 07/20/16 09:35 14 07/20/16 08:00 98.0 70 14 128/90 98 07/20/16 08:00 70 07/20/16 06:00 68 07/20/16 04:00 68 07/20/16 04:00 97.9 68 13 108/60 100 07/20/16 02:00 72 07/20/16 00:00 98.3 70 14 96/55 97 07/20/16 00:00 70 07/19/16 22:00 79 07/19/16 20:00 99 07/19/16 20:00 98.3 99 35 152/89 95 07/19/16 18:00 71 07/19/16 16:00 71 07/19/16 15:00 98.0 79 20 115/55 98 07/19/16 14:00 71 I/O 07/19/16 07/19/16 07/19/16 07/20/16 07/20/16 07/20/16 07:00 15:00 23:00 07:00 15:00 23:00 Intake Total 1216 ml 1249 ml 557 ml Output Total 650 ml 1325 ml 750 ml Balance 566 ml -76 ml -193 ml Intake Oral 620 ml 480 ml 480 ml IV Total 596 ml 769 ml 77 ml Output Urine Total 650 ml 1325 ml 750 ml Drainage Total 0 ml # Bowel Movements 0 0 Result Diagram: 07/20/16 0515 07/20/16 0515 Objective Remarks GENERAL: SKIN: Warm and dry. HEAD: Atraumatic. Normocephalic. EYES: Pupils equal and round. No scleral icterus. No injection or drainage. ENT: No nasal bleeding or discharge. Mucous membranes pink and moist. NECK: Trachea midline. No JVD. CARDIOVASCULAR: Regular rate and rhythm. RESPIRATORY: No accessory muscle use. Clear to auscultation. Breath sounds equal bilaterally. GASTROINTESTINAL: Abdomen soft, non-tender, nondistended. Hepatic and splenic margins not palpable. MUSCULOSKELETAL: Extremities without clubbing, cyanosis, or edema. No obvious deformities. NEUROLOGICAL: Awake and alert. No obvious cranial nerve deficits. Motor grossly within normal limits. Five out of 5 muscle strength in the arms and legs. Normal speech. PSYCHIATRIC: Appropriate mood and affect; insight and judgment normal. Assessment and Plan Assessment and Plan HEMOPTYSIS LUNG CA irregularity DEISY bronchus heam throughout tracheobronchial tree PLAN CONTINUE ANTIBIOTICS MONITOR CLOSELY F/U CT PENDING Zhen Fontaine MD Jul 20, 2016 13:49
--- NOTE | 2016-07-20 15:26 | HHI.PR ---
Subjective Remarks The patient's procedure went well yesterday. He has not coughed up blood in a couple of days. He is anxious about being transferred out of the ICU. He has no acute complaints at this time. Discussed with nursing. Objective Vitals Vital Signs Date Time Temp Pulse Resp B/P Pulse Ox O2 Delivery O2 Flow Rate FiO2 07/20/16 13:33 16 07/20/16 10:00 72 07/20/16 09:36 97 07/20/16 09:35 14 07/20/16 08:00 98.0 70 14 128/90 98 07/20/16 08:00 70 07/20/16 06:00 68 07/20/16 04:00 68 07/20/16 04:00 97.9 68 13 108/60 100 07/20/16 02:00 72 07/20/16 00:00 98.3 70 14 96/55 97 07/20/16 00:00 70 07/19/16 22:00 79 07/19/16 20:00 99 07/19/16 20:00 98.3 99 35 152/89 95 07/19/16 18:00 71 07/19/16 16:00 71 I/O 07/19/16 07/19/16 07/19/16 07/20/16 07/20/16 07/20/16 07:00 15:00 23:00 07:00 15:00 23:00 Intake Total 1216 ml 1249 ml 557 ml 1389 ml Output Total 650 ml 1325 ml 750 ml 800 ml Balance 566 ml -76 ml -193 ml 589 ml Intake Oral 620 ml 480 ml 480 ml 600 ml IV Total 596 ml 769 ml 77 ml 464 ml Packed Cells 325 ml Output Urine Total 650 ml 1325 ml 750 ml 800 ml Drainage Total 0 ml # Bowel Movements 0 0 0 Result Diagram: 07/20/16 0515 07/20/16 0515 Imaging Last Impressions Chest CT 07/19/16 0000 Signed Impressions: Service Date/Time: Tuesday, July 19, 2016 11:11 - CONCLUSION: 1 cm nodular density in the left upper lobe laterally and slight reticular interstitial thickening in the left perihilar parenchyma. Joselito Ramos MD Angiography 07/19/16 0000 Signed Impressions: Service Date/Time: [place], July 19, 2016 12:06 - CONCLUSION: Successful embolization of the left bronchial artery, notable for an area of hypervascularity and neovascularity supplied by left suprahilar bronchial branch vessels. Joselito Ramos MD Objective Remarks GENERAL: No apparent distress, resting comfortably. SKIN: Warm and dry, well perfused HEAD: Atraumatic. Normocephalic. EYES: Pupils equal and round. No scleral icterus. No injection or drainage. ENT: No nasal bleeding noted. No intraoral lesions noted. NECK: Trachea midline. No JVD. CARDIOVASCULAR: Regular rate and rhythm. No murmurs rubs or gallops appreciated. RESPIRATORY: Slight expiratory wheezing noted. GASTROINTESTINAL: Abdomen soft, non-tender, nondistended. Bowel sounds present. MUSCULOSKELETAL: Extremities without clubbing, cyanosis, or edema. No obvious deformities. NEUROLOGICAL: No obvious cranial nerve deficits. Motor grossly within normal limits. Normal speech. Oriented 4. PSYCH: Mood and affect appropriate. Procedures Bronchoscopy 07/18. Embolization 07/19. Medications and IVs Current Medications Medications (Trade) Dose Ordered Sig/Neli Route Start Time Stop Time Status Last Admin (Tessalon) 200 mg TID PRN PO 07/16/16 00:15 07/20/16 09:00 Methylprednisolone Sodium Succinate 60 mg 60 mg Q6H IV PUSH 07/16/16 00:00 07/20/16 12:00 (Levaquin 750 Mg Premix Inj) 150 ml @ 100 mls/hr Q24H IV 07/16/16 02:00 07/20/16 02:35 (Lyrica) 50 mg Q12HR PO 07/16/16 09:00 07/20/16 09:18 (Ativan Inj) 0.5 mg Q6H PRN IV PUSH 07/16/16 02:45 07/18/16 12:42 Morphine Sulfate 4 mg 4 mg Q2H PRN IV PUSH 07/16/16 02:45 07/20/16 13:34 (NS 1000 ml Inj) 1,000 ml @ 84 mls/hr [id number] IV 07/16/16 02:54 07/20/16 02:14 (Protonix Inj) 40 mg DAILY IV 07/16/16 09:00 07/20/16 09:18 (Zofran Inj) 4 mg Q6H PRN IV 07/16/16 03:00 (Colace) 100 mg BID PO 07/16/16 09:00 07/20/16 09:18 Miscellaneous Information 1 [id number] XX 07/16/16 03:00 (Chlorhexidine 2% Cloth) 3 pack Taper DAILY@04 TOP 07/16/16 04:00 07/12/17 03:59 07/20/16 04:00 (Chlorhexidine 2% Cloth) 3 pack UNSCH PRN TOP 07/16/16 03:00 ([place] 10-325 Mg) 1 tab Q6H PRN PO 07/16/16 03:00 07/19/16 09:58 (Proscar) 5 mg DAILY PO 07/16/16 09:00 07/20/16 09:18 (Synthroid) 100 mcg DAILY@0600 PO 07/16/16 10:00 07/20/16 04:59 (Symbicort 80-4.5 Mcg Inh) 2 puff Q12HR INH 07/16/16 21:00 07/17/16 08:57 Cefuroxime Axetil 500 mg 500 mg Q12HR PO 07/16/16 21:00 07/20/16 09:18 (D5W-1/2 NS 1000 ml Inj) 1,000 ml @ 0 mls/hr Q0M IV 07/17/16 16:34 07/18/16 05:52 (Amicar) 1,000 mg Q6HR PO 07/18/16 18:00 07/20/16 12:00 A/P Assessment and Plan Adenocarcinoma of left upper lobe/ Hemoptysis/ COPD/ Acute respiratory failure Status post chemotherapy and radiation (completed May 2016). CT pulmonary angiogram at outside hospital was negative for PE; There is DEISY lung nodule; DEISY bronchus is partially obstructed ?blood products vs endobronchial lesion. S/ p bronchoscopy 07/18 by pulmonology. Bleeding improved following Amicar. Oncology consult appreciated. Per IR: Successful embolization of the left bronchial artery, notable for an area of hypervascularity and neovascularity supplied by left suprahilar bronchial branch vessels 07/19. - Morphine 2-4 mg IV every 2 hours as needed for cough. - Tessalon Perles 200 mg by mouth 3 times a day. - Lidocaine nebs 4% every 6 hours. - Solu-Medrol 60 g IV every 6 hours. - suction as needed. - follow cultures. - oxygen as needed. - Transfuse as needed. S/p 1 unit 07/19. Additional unit 07/20. - Hold ASA. - Tobacco cessation discussed. - continue Levaquin and Amicar. - follow up with pulmonology and oncology. Anemia Acute blood loss anemia secondary to above. Hemoglobin 7 07/18. - follow CBC and transfuse as needed. Transfuse additional unit 07/20. Hypothyroidism TSH 5.92. - discussed medication compliance and taking medication on an empty stomach. - Home Synthroid dose is 100 g by mouth daily continued. PPx: SCDs. Discharge Planning Transfer to medical floor. Francisco Benavides DO Jul 20, 2016 15:26
[2016-07-20 17:15] LABS: HEMATOCRIT 24.6 % (39.0-51.0); MEAN CELL VOLUME 94.8 FL (80.0-100.0); MEAN CORPUSCULAR HEMOGLOBIN 32.4 PG (27.0-34.0); MEAN CORPUSCULAR HGB CONC 34.2 % (32.0-36.0); PLATELET COUNT 177 TH/MM3 (150-450); RED BLOOD COUNT 2.59 MIL/MM3 (4.50-5.90); RED CELL DISTRIBUTION WIDTH 17.6 % (11.6-17.2); REVIEW FLAG FINAL; WHITE BLOOD COUNT 10.2 TH/MM3 (4.0-11.0)
[2016-07-21] MEDS: AMINOCAPROIC ACID 500 MG TAB PO SCH ×3 (00:17→14:03)
[2016-07-21 00:40] VITALS: BP 132/94; PULSE 74; RESP 16; TEMP 97.2; O2SAT 97
[2016-07-21 01:25] LABS: AUTOMATED NEUTROPHIL # 10.7 TH/MM3 (1.8-7.7); BASOPHIL % 0.1 % (0.0-2.0); HEMATOCRIT 25.6 % (39.0-51.0); LYMPH % 4.3 % (9.0-44.0); LYMPHOCYTE # 0.5 TH/MM3 (1.0-4.8); MEAN CELL VOLUME 95.6 FL (80.0-100.0); MEAN CORPUSCULAR HEMOGLOBIN 31.8 PG (27.0-34.0); MEAN CORPUSCULAR HGB CONC 33.2 % (32.0-36.0); MONO % 3.7 % (0.0-8.0); NEUT % 91.9 % (16.0-70.0); PLATELET COUNT 193 TH/MM3 (150-450); RED BLOOD COUNT 2.68 MIL/MM3 (4.50-5.90); RED CELL DISTRIBUTION WIDTH 17.5 % (11.6-17.2); WHITE BLOOD COUNT 11.6 TH/MM3 (4.0-11.0)
[2016-07-21 01:31] LABS: HEMO FLAGS AUTO DIFF
[2016-07-21] MEDS: LEVOFLOXACIN 750 MG PREMIX INJ 150 ML IV SCH (02:00)
[2016-07-21] MEDS: MORPHINE SULFATE 4 MG/ML INJ IV PUSH PRN ×2 (02:01→05:22)
[2016-07-21 02:39] LABS: SCAN/DIFF AUTO DIFF CONFIRMED
[2016-07-21 02:42] LABS: PLATELET ESTIMATE SMEAR LOW (NORMAL); PLATELET MORPHOLOGY NORMAL (NORMAL)
[2016-07-21 04:00] VITALS: BP 138/96; PULSE 87; RESP 18; TEMP 96.3; O2SAT 97
[2016-07-21] MEDS: CHLORHEXIDINE GLUCONATE 2 % 1 PACK (2 CLOTHS) TOP SCH (04:00)
[2016-07-21] MEDS: LEVOTHYROXINE SODIUM 100 MCG TAB PO SCH (05:12)
[2016-07-21] MEDS: methylPREDNISolone SOD SUCC 125 MG/2 ML VIAL IV PUSH SCH ×2 (05:13→14:04)
[2016-07-21 07:46] VITALS: O2SAT 97
[2016-07-21 08:00] VITALS: BP 133/83; PULSE 75; TEMP 96.2; O2SAT 98
[2016-07-21] MEDS: CEFUROXIME AXETIL 500 MG TAB PO SCH (09:33)
[2016-07-21] MEDS: DOCUSATE SODIUM 100 MG CAP PO SCH (09:33)
[2016-07-21] MEDS: FINASTERIDE 5 MG TAB PO SCH (09:34)
[2016-07-21] MEDS: PREGABALIN 25 MG CAP PO SCH (09:34)
[2016-07-21] MEDS: PANTOPRAZOLE SODIUM 40 MG VIAL IV SCH (09:36)
[2016-07-21] MEDS ORDERED: SENNOSIDES 8.6 MG TAB PO SCH (10:00)
[2016-07-21] MEDS ORDERED: POLYETHYLENE GLYCOL 17 GM PKG PO ONE (10:00)
[2016-07-21] MEDS ORDERED: LACTULOSE SYRUP 20 GM/30 ML CUP PO ONE (10:00)
--- NOTE | 2016-07-21 10:06 | HHI.DCPOC ---
Discharge Care Plan Diagnosis: (1) Adenocarcinoma of left lung (2) Major hemoptysis (3) COPD (chronic obstructive pulmonary disease) (4) Anemia (5) Hypothyroid Goals to Promote Your Health * To prevent worsening of your condition and complications * To maintain your health at the optimal level Directions to Meet Your Goals Take your medications as prescribed Follow your dietary instruction Follow activity as directed Keep your appointments as scheduled Take your immunizations and boosters as scheduled If your symptoms worsen call your PCP, if no PCP go to Urgent Care Center or Emergency Room Smoking is Dangerous to Your Health. Avoid second hand smoke Call the 24-hour hour crisis hotline for domestic abuse at Francisco Benavides DO Jul 21, 2016 10:06
[2016-07-21] MEDS ORDERED: PREG25 PO (10:38)
[2016-07-21] MEDS ORDERED: LEVO.1 PO (10:38)
[2016-07-21] MEDS ORDERED: PRED20 PO (10:38)
[2016-07-21] MEDS ORDERED: BENZ100 PO (10:38)
[2016-07-21] MEDS ORDERED: SYMB80AE INH (10:38)
[2016-07-21] MEDS ORDERED: HYDR-3583 PO (10:38)
[2016-07-21] MEDS ORDERED: CEFT500T3 PO (10:38)
[2016-07-21 11:20] LABS: AUTOMATED NEUTROPHIL # 9.8 TH/MM3 (1.8-7.7); HEMATOCRIT 26.7 % (39.0-51.0); HEMO FLAGS DIFF FINAL; LYMPH % 4.6 % (9.0-44.0); LYMPHOCYTE # 0.5 TH/MM3 (1.0-4.8); MEAN CELL VOLUME 94.9 FL (80.0-100.0); MEAN CORPUSCULAR HEMOGLOBIN 31.9 PG (27.0-34.0); MEAN CORPUSCULAR HGB CONC 33.6 % (32.0-36.0); MONO % 2.8 % (0.0-8.0); NEUT % 92.6 % (16.0-70.0); PLATELET COUNT 191 TH/MM3 (150-450); RED BLOOD COUNT 2.81 MIL/MM3 (4.50-5.90); RED CELL DISTRIBUTION WIDTH 17.2 % (11.6-17.2); WHITE BLOOD COUNT 10.6 TH/MM3 (4.0-11.0)
--- NOTE | 2016-07-21 11:37 | HHI.DS ---
Discharge Summary Admission Date Jul 15, 2016 at 23:40 Discharge Date: Jul 21, 2016 Admitting Diagnosis (1) Adenocarcinoma of left lung ICD Code: C34.92 (2) Major hemoptysis ICD Code: R04.2 (3) Hypothyroid ICD Code: E03.9 Procedures Bronchoscopy 07/18. Embolization 07/19. Brief History - From Admission 61-year-old male who is visiting from [place] with past medical history of COPD, emphysema, tobacco abuse, adenocarcinoma of the lung status post recent radiation and chemotherapy, hypothyroidism who presented to [facility] with a one-day history of hemoptysis. He states that on 07/15 around 9 AM he started coughing up blood. He states he has been unable to quit coughing all day and at one point around 4:30 pm on 07/15 coughed up about a half a cup of bright red blood. He also had some pleuritic left-sided chest pain. He denies fever or sputum production. He feels intermittent SOB, stating "It feels like I fill up with blood and then gets better after I cough". He denies prior history of hemoptysis. No vomiting. He was diagnosed with adenocarcinoma of the lung in February 2016 and has undergone radiation and chemotherapy which she completed in May 2016. He underwent CT pulmonary angiogram that was negative for PE . He has been taking ASA as he was told to do so by his oncologist while travelling by car from [place] to [place]. He has not been on anticoagulation. Hgb at OSH was 12.9-->12.2. At outside facility he received Benadryl 25 mg IV, Lidocaine neb, Reglan 10 mg IV, Morphine total of 8 mg IV, Zofran 4 mg IV[address] I reviewed CT images from OSH which shows 2 nodules in Left upper lobe. There is bronchiectasis bilaterally. There is fullness at the left hilum that likely represents lymphadenopathy. The left upper lobe bronchus is not completely patent which could be endobronchial tumor versus blood product. He is in the time frame for radiation induced injury. There is no consolidation/. He was transferred to [facility] after outside facility discussed with Dr. Fontaine. CBC/BMP: 07/21/16 1100 07/20/16 0515 Significant Findings Laboratory Tests Test 07/18/16 07/18/16 07/19/16 07/19/16 14:05 23:50 04:00 16:40 Hemoglobin 7.0 GM/DL 7.1 GM/DL 7.4 GM/DL 7.3 GM/DL (13.0-17.0) (13.0-17.0) (13.0-17.0) (13.0-17.0) Hematocrit 21.3 % 20.9 % 21.8 % 21.8 % (39.0-51.0) (39.0-51.0) (39.0-51.0) (39.0-51.0) Test 07/19/16 07/20/16 07/20/16 07/20/16 22:45 05:15 16:22 22:45 Hemoglobin 7.2 GM/DL 7.2 GM/DL 8.4 GM/DL 8.5 GM/DL (13.0-17.0) (13.0-17.0) (13.0-17.0) (13.0-17.0) Hematocrit 21.2 % 21.3 % 24.6 % 25.6 % (39.0-51.0) (39.0-51.0) (39.0-51.0) (39.0-51.0) Red Blood Count 2.20 MIL/MM3 2.59 MIL/MM3 2.68 MIL/MM3 (4.50-5.90) (4.50-5.90) (4.50-5.90) Red Cell Distribution Width 17.6 % 17.6 % 17.5 % (11.6-17.2) (11.6-17.2) (11.6-17.2) Chloride Level 112 MEQ/L (98-107) Blood Urea Nitrogen 29 MG/DL (7-18) Estimat Glomerular Filtration 69 ML/MIN (>89) Rate Calcium Level 8.0 MG/DL (8.5-10.1) White Blood Count 11.6 TH/MM3 (4.0-11.0) Neutrophils (%) (Auto) 91.9 % (16.0-70.0) Lymphocytes (%) (Auto) 4.3 % (9.0-44.0) Neutrophils # (Auto) 10.7 TH/MM3 (1.8-7.7) Lymphocytes # (Auto) 0.5 TH/MM3 (1.0-4.8) Platelet Estimate LOW (NORMAL) Test 07/21/16 11:00 Red Blood Count 2.81 MIL/MM3 (4.50-5.90) Hemoglobin 9.0 GM/DL (13.0-17.0) Hematocrit 26.7 % (39.0-51.0) Neutrophils (%) (Auto) 92.6 % (16.0-70.0) Lymphocytes (%) (Auto) 4.6 % (9.0-44.0) Neutrophils # (Auto) 9.8 TH/MM3 (1.8-7.7) Lymphocytes # (Auto) 0.5 TH/MM3 (1.0-4.8) Imaging Last Impressions Chest CT 07/19/16 0000 Signed Impressions: Service Date/Time: Tuesday, July 19, 2016 11:11 - CONCLUSION: 1 cm nodular density in the left upper lobe laterally and slight reticular interstitial thickening in the left perihilar parenchyma. Joselito Ramos MD Angiography 07/19/16 0000 Signed Impressions: Service Date/Time: Tuesday, July 19, 2016 12:06 - CONCLUSION: Successful embolization of the left bronchial artery, notable for an area of hypervascularity and neovascularity supplied by left suprahilar bronchial branch vessels. Joselito Ramos MD PE at Discharge GENERAL: No apparent distress, resting comfortably. SKIN: Warm and dry, well perfused HEAD: Atraumatic. Normocephalic. EYES: Pupils equal and round. No scleral icterus. No injection or drainage. ENT: No nasal bleeding noted. No intraoral lesions noted. NECK: Trachea midline. No JVD. CARDIOVASCULAR: Regular rate and rhythm. No murmurs rubs or gallops appreciated. RESPIRATORY: Slight expiratory wheezing noted. GASTROINTESTINAL: Abdomen soft, non-tender, nondistended. Bowel sounds present. MUSCULOSKELETAL: Extremities without clubbing, cyanosis, or edema. No obvious deformities. NEUROLOGICAL: No obvious cranial nerve deficits. Motor grossly within normal limits. Normal speech. Oriented 4. PSYCH: Mood and affect appropriate. Pt update on day of discharge The patient was feeling well. He has had no further hemoptysis. His cough was controlled. He has been ambulating. He still has not had a bowel movement in a few days. Pain was controlled. Discussed with nursing. Hospital Course Adenocarcinoma of left upper lobe/ Hemoptysis/ COPD/ Acute respiratory failure Status post chemotherapy and radiation (completed May 2016). CT pulmonary angiogram at outside hospital was negative for PE; There is DEISY lung nodule; DEISY bronchus is partially obstructed ?blood products vs endobronchial lesion. S/ p bronchoscopy 07/18 by pulmonology. Oncology was consulted. Bleeding improved following Amicar administration. Oncology was consulted. Per interventional radiology: Successful embolization of the left bronchial artery, notable for an area of hypervascularity and neovascularity supplied by left suprahilar bronchial branch vessels 07/19. He received morphine 2-4 mg IV every 2 hours as needed for cough as well as Tessalon Perles 200 mg by mouth 3 times a day. He was placed on Lidocaine nebs 4% every 6 hours. He was started on Solu-Medrol. He was suctioned as needed. He received oxygen as needed. He was transfused 1 unit of red cells 07/19 and an additional unit 07/20. Hemoglobin has been stable. We held his home ASA. Tobacco cessation was discussed. He was continued on Levaquin and Ceftin. He will complete a course of Ceftin. He will follow up with pulmonology and oncology as an outpt. He will have a CBC checked in 2-3 days. He received a bowel regimen for constipation. Pt Condition on Discharge: Stable Discharge Disposition: Discharge Home Discharge Time: > 30 minutes Discharge Instructions DIET: Follow Instructions for: As Tolerated, No Restrictions Activities you can perform: Weight Bearing as Pamela Follow up Referrals: Oncology - [address] Mariano PCP Follow-up - 1 Week Pulmonology - 1 Week with Zhen Fontaine MD New Orders: CBC NO DIFF - 2-3 Days New Medications: Prednisone (Prednisone) 20 Mg Tab 20 MG PO DIRECTED Take 60 MG daily x 4 days, then 40 MG x 4 days, then 20 MG daily x 4 days. Breathing #24 Ref 0 TAB Benzonatate (Tessalon Perles) 100 Mg Cap 200 MG PO TID PRN COUGH #30 CAP Budesonide-Formoterol Inh (Symbicort Inh) 80-4.5 Mcg/Act Aero 2 PUFF INH Q12HR breathing #2 INHALER Cefuroxime (Ceftin) 500 Mg Tab 500 MG PO Q12HR Infection #6 TAB Hydrocodone-Acetaminophen (Hydrocodone-Acetaminophen) 10-325 mg Tab 1 TAB PO Q6H PRN PAIN #30 TAB Levothyroxine (Synthroid) 100 Mcg Tab 100 MCG PO DAILY@0600 Thyroid #30 TAB Pregabalin (Lyrica) 25 Mg Cap 50 MG PO Q12HR Neuropathy #30 Francisco Gutiérrez DO Jul 21, 2016 11:37
[2016-07-21 12:00] VITALS: BP 119/81; PULSE 89; RESP 20; TEMP 96.5; O2SAT 98
--- NOTE | 2016-07-21 12:48 | HHI.PR ---
Subjective Remarks ALERT NO SOB HEMOPTYSIS STOPPED post AMICAR bronchoscopy done well tolerated Objective Vital Signs Date Time Temp Pulse Resp B/P Pulse Ox O2 Delivery O2 Flow Rate FiO2 07/21/16 12:00 96.5 89 20 119/81 98 07/21/16 08:00 96.2 75 133/83 98 07/21/16 07:46 97 21 07/21/16 05:28 20 07/21/16 04:00 96.3 87 18 138/96 97 07/21/16 00:40 97.2 74 16 132/94 97 07/21/16 00:18 19 07/20/16 20:44 97 07/20/16 20:00 72 07/20/16 20:00 98.2 72 16 158/85 97 07/20/16 18:00 72 07/20/16 16:00 97.7 72 16 125/68 98 I/O 07/20/16 07/20/16 07/20/16 07/21/16 07/21/16 07/21/16 07:00 15:00 23:00 07:00 15:00 23:00 Intake Total 557 ml 1389 ml 739 ml Output Total 750 ml 800 ml 700 ml Balance -193 ml 589 ml 39 ml Intake Oral 480 ml 600 ml 240 ml IV Total 77 ml 464 ml 499 ml Packed Cells 325 ml Output Urine Total 750 ml 800 ml 700 ml # Bowel Movements 0 0 0 Result Diagram: 07/21/16 1100 07/20/16 0515 Objective Remarks GENERAL: SKIN: Warm and dry. HEAD: Atraumatic. Normocephalic. EYES: Pupils equal and round. No scleral icterus. No injection or drainage. ENT: No nasal bleeding or discharge. Mucous membranes pink and moist. NECK: Trachea midline. No JVD. CARDIOVASCULAR: Regular rate and rhythm. RESPIRATORY: No accessory muscle use. Clear to auscultation. Breath sounds equal bilaterally. GASTROINTESTINAL: Abdomen soft, non-tender, nondistended. Hepatic and splenic margins not palpable. MUSCULOSKELETAL: Extremities without clubbing, cyanosis, or edema. No obvious deformities. NEUROLOGICAL: Awake and alert. No obvious cranial nerve deficits. Motor grossly within normal limits. Five out of 5 muscle strength in the arms and legs. Normal speech. PSYCHIATRIC: Appropriate mood and affect; insight and judgment normal. Assessment and Plan Assessment and Plan Hemoptysis , resolved LUNG CA No SOB PLAN CONTINUE ANTIBIOTICS INCREASE ACTIVITY Zhen Fontaine MD Jul 21, 2016 12:48
== END 2016-07-21 16:35 | disposition home or self-care (01) | DRG 204 ==
LOC: HIMW 23:40 → HOCB 07-20 22:08
PROVIDERS: ADMIT Hospitalist; ATTEND Hospitalist
PROC: 0BB78ZX Excision of Left Main Bronchus, Via Natural or Artificial Opening Endoscopic, Diagnostic (ICD-10-PCS; principal; 2016-07-18 08:20)
DX: R04.2 Hemoptysis (principal); D62 Acute posthemorrhagic anemia; E03.9 Hypothyroidism, unspecified; N40.0 Benign prostatic hyperplasia without lower urinary tract symptoms; G62.9 Polyneuropathy, unspecified; G89.29 Other chronic pain; Z85.118 Personal history of other malignant neoplasm of bronchus and lung; Z92.3 Personal history of irradiation; Z92.21 Personal history of antineoplastic chemotherapy; Z87.01 Personal history of pneumonia (recurrent); Y84.2 Radiological procedure and radiotherapy as the cause of abnormal reaction of the patient, or of later complication, without mention of misadventure at the time of the procedure; K21.9 Gastro-esophageal reflux disease without esophagitis; J44.9 Chronic obstructive pulmonary disease, unspecified; F41.9 Anxiety disorder, unspecified; F17.200 Nicotine dependence, unspecified, uncomplicated; F39 Unspecified mood [affective] disorder; K59.00 Constipation, unspecified; Z86.79 Personal history of other diseases of the circulatory system
CPT/HCPCS: 36216; 36430; 37243; 71250; 75605; 75774; 75894; 76937; 80048; 82378; 83735; 84100; 84443; 85014; 85018; 85025; 85027; 85610; 85730; 86850; 86900; 86901; 86920; 87015; 87040; 87070; 87102; 87116; 87205; 87206; 87641; 90732; 94640; 94664; 99152; 99153; C1760; C1769; C1887; C1894; C9113; J0171; J0690; J1956; J2060; J2250; J2270; J2930; J3010; J7030; J7613; P9016; Q9967